=== PATIENT | female | born 1960 | race Caucasian/White ===

== ENCOUNTER 2016-07-25 05:45 | Emergency (ER) | payer SELFPAY ==
[2016-07-25 06:08] VITALS: BP 119/75; BMI 30.1
--- NOTE | 2016-07-25 07:21 | DR.GENAD ---
HPI - PCP Primary Care Physician: DR. MCMULLEN - Complaint/Symptoms Chief Complaint Doctors Comments: Patient admits to epigastric pain for two weeks not relieved by otc medication. Two weeks ago had influenzia treated with Tamiflu Chief Complaint:: PAIN IN TOP OF STOMACH Self Treatment fo Chief Complaint: MELATONIN, 2 LEG CRAMP PILLS, OTC SLEEP MED - Source History Provided: Patient - Mode of Arrival Mode of Arrival: Ambulatory - Timing Onset of Chief Complaint: 07/20/16 <SEBASTIAN CROCKETT - Last Filed: 07/25/16 07:17> PMH - PMH Past Medical History: Yes Past Medical History: Dyslipidemia Past Surgical History: Yes Surgical History: - Family History History of Family Medical Conditions: Yes Family Medical History: Diabetes Mellitus, Cancer, [place], Heart Failure, Hypertension Family Medical History Comment: CVA - Social History Does patient currently use any type of tobacco product: No Have you used tobacco products in the last 12 months: No Type of Tobacco Use: Cigarettes How many years tobacco product used: 11 Does any household member use tobacco: No Alcohol Use: None Do you use any recreational Drugs:: No Lives With: Spouse Lives Where: Home - infectious screening In the last 2 months have you had wt loss of >10#?: NO Have you had fever, night sweats or hemotysis?: No Have you traveled outside the country in the last 6 months?: No Isolation: Standard <SEBASTIAN CROCKETT - Last Filed: 07/25/16 07:17> ROS - Review of Systems Eyes: No Symptoms Reported ENTM: No Symptoms Reported Respiratoy: No Symptoms Reported Cardiovascular: No Symptoms Reported Gastrointestinal/Abdominal: Abdominal Pain Genitourinary: No Symptoms Reported Neurological: No Symptoms Reported Musculoskeletal: No Symptoms Reported Integumentary: No Symptoms Reported Hematologic/Lymphatic: No Symptoms Reported Endocrine: No Symptoms Reported Psychiatric: No Symptoms Reported All Other Systems: Reviewed and Negative <SEBASTIAN CROCKETT - Last Filed: 07/25/16 07:17> PE - General Limitations: No Limitations General Appearance: Alert, In No Apparent Distress - Head Head Exam: Normal Inspection, Atraumatic - Eyes Eye exam: Normal Appearance, PERRL, EOMI - ENT ENT Exam: Normal Exam External Ear Exam: Normal External Inspection TM/Canal Exam: Bilateral Normal Nose Exam: Normal Nose Exam Mouth Exam: Normal Inspection Throat Exam: Normal Inspection - Neck Neck Exam: Normal Inspection - Chest Chest Inspection: Normal Inspection - Respiratory Respiratory Exam: Normal Lung Sounds Bilat Respiratory Exam: Bilateral Clear to Auscultation - Cardiovascular Cardiovascular Exam: Regular Rate - Abdominal Exam Abdominal Exam: Normal Inspection, Tenderness (epigastric area) Abdominal Tenderness: negative: RUQ, RLQ, LUQ, LLQ, Epigastrium, Suprapubic, Diffuse, Mild, Moderate, Severe, Other - Extremities Extremities Exam: Normal Inspection, Full ROM, Normal Capillary Refill. negative: Edema - Back Back Exam: Normal Inspection - Neurologic Neurological Exam: Alert, Oriented X3, CN II-XII Intact - Psychiatric Psychiatric Exam: Normal Affect, Normal Mood - Skin Skin Exam: Warm, Dry, Intact <SEBASTIAN CROCKETT - Last Filed: 07/25/16 07:17> ROR - Labs Reviewed Laboratory Results Reviewed?: Yes Result Diagrams: 07/25/16 07:25 07/25/16 07:25 - XRAY XRAY Interpreted by: Radiologist XRAY Findings: REPORT DISCUSS WITH PATIENT. <CRYSTAL WARREN - Last Filed: 07/26/16 11:55> - Labs Reviewed Laboratory: WBC 9.8 X10^3/uL (3.6-10.0) 07/25/16 07:25 RBC 4.44 X10^6/uL (3.5-5.4) 07/25/16 07:25 Hgb 12.2 g/dL (12.0-16.0) 07/25/16 07:25 Hct 36.1 % (36.0-47.0) 07/25/16 07:25 MCV 81.4 fL (80.0-100.0) 07/25/16 07:25 MCH 27.4 pg (27.0-34.0) 07/25/16 07:25 MCHC 33.7 g/dL (33.0-35.0) 07/25/16 07:25 RDW 13.8 % (11.6-16.5) 07/25/16 07:25 Plt Count 233 X10^3/uL (150.0-450.0) 07/25/16 07:25 MPV 7.8 fL (7.4-11.0) 07/25/16 07:25 Neut % 68.8 % (42.0-75.0) 07/25/16 07:25 Lymph % 24.7 % (21.0-51.0) 07/25/16 07:25 [place] % 5.7 % (0.0-13.0) 07/25/16 07:25 Eos % 0.2 % (0.9-2.9) L 07/25/16 07:25 Baso % 0.6 % (0.2-1.0) 07/25/16 07:25 Neut # 6.7 x10^3/uL (2.2-4.8) H 07/25/16 07:25 Lymph # 2.4 X10^3/uL (1.3-2.9) 07/25/16 07:25 [place] # 0.6 x10^3/uL (0.3-0.8) 07/25/16 07:25 Eos # 0.0 x10^3/uL (0.0-0.2) 07/25/16 07:25 Baso # 0.1 X10^3/uL (0.0-0.1) 07/25/16 07:25 Absolute Nucleated RBC 0.0 /100WBC 07/25/16 07:25 INR Target Range - 07/25/16 07:25 INR 1.05 (0.8-1.3) 07/25/16 07:25 PTT 29.6 SECONDS (22.9-36.5) 07/25/16 07:25 PTT Comment - 07/25/16 07:25 Sodium 139 mmol/L (136-145) 07/25/16 07:25 Corrected Sodium 140 mmol/L (136-145) 07/25/16 07:25 Potassium 3.5 mmol/L (3.5-5.1) 07/25/16 07:25 Chloride 103 mmol/L (98-107) 07/25/16 07:25 Carbon Dioxide 27.4 mmol/L (21-32) 07/25/16 07:25 BUN 7 mg/dL (7-18) 07/25/16 07:25 Creatinine 0.83 mg/dL (0.55-1.02) 07/25/16 07:25 Est GFR (MDRD) Af Amer > 60 (>60) 07/25/16 07:25 Est GFR (MDRD) Non-Af > 60 (>60) 07/25/16 07:25 Glucose 132 mg/dL (65-99) H 07/25/16 07:25 Calcium 8.4 mg/dL (8.5-10.1) L 07/25/16 07:25 Corrected Calcium 9.1 mg/dL (8.5-10.1) 07/25/16 07:25 Total Bilirubin 0.20 mg/dL (0.2-1.0) 07/25/16 07:25 AST 19 Units/L (15-37) 07/25/16 07:25 ALT 22 Units/L (12-78) 07/25/16 07:25 Alkaline Phosphatase 82 Units/L (46-116) 07/25/16 07:25 Creatine Kinase 51 Units/L (26-192) 07/25/16 07:25 CK-MB (CK-2) < 1.0 ng/mL (0-4.0) 07/25/16 07:25 CK/CKMB % Calc 2.0 % (<4) 07/25/16 07:25 Troponin I < 0.02 ng/mL (0-1.5) 07/25/16 07:25 C-Reactive Protein 72.20 mg/L (0-3.0) H 07/25/16 07:25 Total Protein 7.2 g/dL (6.4-8.2) 07/25/16 07:25 Albumin 3.1 g/dL (3.4-5.0) L 07/25/16 07:25 Globulin 4.1 g/dL (2.5-4.5) 07/25/16 07:25 Albumin/Globulin Ratio 0.8 Ratio (1.1-2.1) L 07/25/16 07:25 Amylase 40 Units/L (25-115) 07/25/16 07:25 Lipase 65 Units/L (73-393) L 07/25/16 07:25 Specimen Type Clean catch urine 07/25/16 08:57 Urine Color Yellow (YELLOW) 07/25/16 08:57 Urine Appearance Slightly hazy (CLEAR) 07/25/16 08:57 Urine pH 6.0 (5.0 - 8.0) 07/25/16 08:57 Ur Specific [place] 1.010 (1.000-1.030) 07/25/16 08:57 Urine Protein 1+ (NEGATIVE) 07/25/16 08:57 Urine Glucose (UA) Negative (NEGATIVE) 07/25/16 08:57 Urine Ketones Negative (NEGATIVE) 07/25/16 08:57 Urine Occult Blood 1+ (NEGATIVE) 07/25/16 08:57 Urine Nitrite Negative (NEGATIVE) 07/25/16 08:57 Urine Bilirubin Negative (NEGATIVE) 07/25/16 08:57 Urine Urobilinogen Normal (NORMAL) 07/25/16 08:57 Ur Leukocyte Esterase 1+ (NEGATIVE) 07/25/16 08:57 Urine RBC Rare /HPF (NEGATIVE) 07/25/16 08:57 Urine WBC Rare /HPF (NEGATIVE) 07/25/16 08:57 Ur Squamous Epith Cells Few /HPF (NEGATIVE) 07/25/16 08:57 Urine Bacteria Negative /HPF (NEGATIVE) 07/25/16 08:57 Ur Culture Indicated? No/not indicated 07/25/16 08:57 H. pylori IgG Antibody Negative (NEGATIVE) 07/25/16 07:25 (CRYSTAL WARREN) <SEBASTIAN CROCKETT - Last Filed: 07/25/16 07:17> <CRYSTAL WARREN - Last Filed: 07/26/16 11:55> - Diagnosis Discharge Problem: Abdominal pain Qualifiers: Abdominal location: epigastric Qualified Code(s): R10.13 - Epigastric pain - Discharge Plan Disposition: 01 HOME, SELF-CARE Condition: Stable Prescriptions: Ranitidine HCl [ZANTAC TAB 150 MG *] 150 mg PO BID #60 tab - Follow ups/Referrals Follow ups/Referrals: [facility],None [Primary Care Provider] - 2 days Madan Martinez [STAFF PHYSICIAN] - 2 days - Instructions Instructions: Abdominal Pain, Adult, [id number] Additional Instructions: return to ed if worse.
[2016-07-25 07:40] LABS: BASOPHILS # (AUTO) 0.1 X10^3/uL (0.0-0.1); BASOPHILS % (AUTO) 0.6 % (0.2-1.0); EOSINOPHILS % (AUTO) 0.2 % (0.9-2.9); HEMATOCRIT 36.1 % (36.0-47.0); HEMOGLOBIN 12.2 g/dL (12.0-16.0); LYMPHOCYTES # (AUTO) 2.4 X10^3/uL (1.3-2.9); LYMPHOCYTES % (AUTO) 24.7 % (21.0-51.0); MEAN CORPUSCULAR HEMOGLOBIN 27.4 pg (27.0-34.0); MEAN CORPUSCULAR HGB CONC 33.7 g/dL (33.0-35.0); MEAN CORPUSCULAR VOLUME 81.4 fL (80.0-100.0); MEAN PLATELET VOLUME 7.8 fL (7.4-11.0); MONOCYTES # (AUTO) 0.6 x10^3/uL (0.3-0.8); MONOCYTES % (AUTO) 5.7 % (0.0-13.0); NEUTROPHILS # (AUTO) 6.7 x10^3/uL (2.2-4.8); NEUTROPHILS % (AUTO) 68.8 % (42.0-75.0); PLATELET COUNT 233 X10^3/uL (150.0-450.0); RED BLOOD COUNT 4.44 X10^6/uL (3.5-5.4); RED CELL DISTRIBUTION WIDTH 13.8 % (11.6-16.5); WHITE BLOOD COUNT 9.8 X10^3/uL (3.6-10.0)
[2016-07-25 08:08] LABS: BLOOD UREA NITROGEN 7 mg/dL (7-18); CALCIUM 8.4 mg/dL (8.5-10.1); CARBON DIOXIDE 27.4 mmol/L (21-32); CHLORIDE 103 mmol/L (98-107); COR NA(FOR HYPERGLY) 140 mmol/L (136-145); CREATININE 0.83 mg/dL (0.55-1.02); GLUCOSE 132 mg/dL (65-99); SODIUM 139 mmol/L (136-145); TROPONIN I < 0.02 ng/mL (0-1.5); eGFR BLACK RACES > 60 (>60); eGFR NON BLACK RACES > 60 (>60)
[2016-07-25 08:12] LABS: ALANINE AMINOTRANSFERASE 22 Units/L (12-78); ALBUMIN 3.1 g/dL (3.4-5.0); ALKALINE PHOSPHATASE 82 Units/L (46-116); AMYLASE 40 Units/L (25-115); ASPARTATE AMINO TRANSFERASE 19 Units/L (15-37); COR CA(FOR HYPOALB) 9.1 mg/dL (8.5-10.1); CREATINE KINASE 51 Units/L (26-192); CREATINE KINASE MB < 1.0 ng/mL (0-4.0); LIPASE 65 Units/L (73-393); TOTAL PROTEIN 7.2 g/dL (6.4-8.2)
[2016-07-25 09:04] LABS: BILIRUBIN,URINE NEGATIVE (NEGATIVE); BLOOD/HEMOGLOBIN,URINE 1+ (NEGATIVE); GLUCOSE, URINE NEGATIVE (NEGATIVE); KETONES,URINE NEGATIVE (NEGATIVE); LEUKOCYTE ESTERASE ,URINE 1+ (NEGATIVE); NITRITES,URINE NEGATIVE (NEGATIVE); PROTEIN,URINE 1+ (NEGATIVE); UROBILINOGEN,URINE NORMAL (NORMAL)
[2016-07-25 09:15] LABS: APPEARANCE,URINE SLIGHTLY HAZY (CLEAR); BACTERIA,URINE NEGATIVE /HPF (NEGATIVE); COLOR,URINE YELLOW (YELLOW); RBC,URINE RARE /HPF (NEGATIVE); SQUAMOUS EPITHELIAL CELL,UR FEW /HPF (NEGATIVE)
--- NOTE | 2016-07-25 09:19 | CT ---
CT OF THE ABDOMEN AND PELVIS WITHOUT CONTRAST HISTORY: Abdominal pain. Comparison: None Technique: Multiple axial images of the abdomen and pelvis were obtained from the lung bases to the pubic symph ysis without the administration of IV contrast. Dose reduction techniques including Automated Expos ure Control (AEC) and adjustment of mA and kV were utlized. Findings: The heart is normal in size. There is no pericardial effusion. Lung bases are clear without focal co nsolidation, pleural effusion or pneumothorax. The sensitivity for focal lesion detection within the solid abdominal viscera is diminished without the use of IV contrast. Liver and spleen are normal in size, and contour. No focal lesions. No ductal dilitation. Gallbladde r is present. No calcified gallstones or gallbladder wall thickening. The pancreas is unremarkable. Adrenal glands are normal. Kidneys are normal in contour without hydronephrosis or nephrolithiasis. There is extensive inflammatory change in the region of the duodenum. No free air No bowel obstruction. No abnormal appearing mesenteric or retroperitoneal lymph nodes. No free flui d or fluid collections. The bladder is normal in appearance. Uterus and ovaries present. No free fluid or abnormal pelvic ly mph nodes. No aggressive osseous lesions. IMPRESSION: 1. Focal inflammation in the region of the proximal duodenum. Primary differential consideration in cludes peptic ulcer disease. It should be noted that given the close proximity of the hepatic flexur e of the colon, focal colitis cannot be excluded. Reported By:
== END 2016-07-25 09:49 | disposition home or self-care (01) ==
LOC: ER 05:45
DX: R10.13 Epigastric pain (principal)
CPT/HCPCS: 36415; 74176; 80053; 81001; 82150; 82550; 82553; 83690; 84484; 85025; 85610; 85730; 86140; 86677; 96365; 99282; 99283; A4222